=== PATIENT | female | born 1965 | race Caucasian/White ===

== ENCOUNTER 2016-10-24 12:54 | Emergency (ER) | payer BC ==
[2016-10-24] MEDS ORDERED: SODIUM CHLORIDE 0.9% 1,000 ML IV STA (13:23)
[2016-10-24] MEDS ORDERED: PANTOPRAZOLE 40 MG/10 ML VIAL IVP STA (13:23)
[2016-10-24] MEDS ORDERED: MAG HYDROX/AL HYDROX/SIMETH 30 ML, HYOSCYAMINE ELIXIR 10 ML, CIMETIDINE HCL 300 MG PO STA ×3 (13:25)
--- NOTE | 2016-10-24 13:31 | ED ---
General Adult HPI - General Source: patient, family, RN notes reviewed Mode of arrival: ambulatory Limitations: no limitations <Jonathan Sinclair - Last Filed: 10/24/16 15:44> <Ladi Turner - Last Filed: 10/24/16 17:09> - General Chief complaint: Abdominal Pain Stated complaint: Abd pain Time Seen by Provider: 10/24/16 13:04 - History of Present Illness Initial comments: Chief complaint history of present illness this is a 51-year-old female here with her significant other. She was sent here from the urgent care clinic. Patient's had 4 days of epigastric pain. Mildly relieved with antacid. No change in stool. No change in color of urine. She did say that the urgent care clinic told her she had blood in the urine. Patient denies nausea vomiting or diarrhea (Jonathan Sinclair) - Related Data Previous Rx's Medication Instructions Recorded Ondansetron Odt [Zofran ODT] 4 mg PO Q8HR PRN #20 tab 10/24/16 Allergies Allergy/AdvReac Type Severity Reaction Status Date / Time Penicillins Allergy Rash/Hives Verified 10/24/16 13:20 Review of Systems ROS Other: All systems not noted in ROS Statement are negative. <Jonathan Sinclair - Last Filed: 10/24/16 15:44> ROS Other: All systems not noted in ROS Statement are negative. <Ladi Turner - Last Filed: 10/24/16 17:09> ROS Statement: Those systems with pertinent positive or pertinent negative responses have been documented in the HPI. Patient denies any change in visual acuity no headache no chest pain no stiff neck. Epigastric discomfort without radiation. No nausea no vomiting mild change in appetite. No change in color of stool or urine. No complaint of any joint pain or muscular skeletal pain. All systems are reviewed Asked medical problems significant for hyperlipidemia, she denies any surgeries. The patient's family history significant for Crohn's but no cancers. She has ALLERGIES to penicillin which causes hives. Patient does smoke she was strongly encouraged to stop. Denies alcohol use (Jonathan Sinclair) Past Medical History Past Medical History: Hyperlipidemia History of Any Multi-Drug Resistant Organisms: None Reported Past Surgical History: No Surgical Hx Reported Past Psychological History: No Psychological Hx Reported Smoking Status: Current every day smoker Past Alcohol Use History: None Reported Past Drug Use History: None Reported <Jonathan Sinclair - Last Filed: 10/24/16 15:44> General Exam Limitations: no limitations <Jonathan Sinclair - Last Filed: 10/24/16 15:44> <Ladi Turner - Last Filed: 10/24/16 17:09> - General Exam Comments Initial Comments: General: The patient is awake and alert, complains of epigastric pain, ongoing for 4 days. Patient's vital signs show temperature 97.9 pulse 100 for rate 18 pulse ox 90% room air blood pressure 139/82 Eye: Pupils are equal, round and reactive to light, extra-ocular movements are intact ; there is normal conjunctiva bilaterally. No signs of icterus Ears, nose, mouth and throat: There are moist mucous membranes and no oral lesions. Neck: The neck is supple, there is no tenderness , no anterior cervical lymphadenopathy, no evidence of meningeal irritation. Cardiovascular: There is a regular rate and rhythm. No murmur, rub or gallop is appreciated. Respiratory: Lungs are clear to auscultation, respirations are non-labored, breath sounds are equal. No wheezes, stridor, rales, or rhonchi. Gastrointestinal: Soft, non-distended, and only tender with deep palpation to the epigastrium. Negative Boogie sign.. There is no rebound or guarding present. No CVA tenderness. Bowel sounds are unremarkable. Back: There is no tenderness to palpation in the midline. There is no obvious deformity. No rashes noted. Musculoskeletal: Normal ROM, no tenderness, There is no pedal edema. There is no calf tenderness or swelling. Sensation intact. Neurological: A complaint of a neuro problems no evidence of any focal or lateralizing findings Skin: Skin is warm and dry and no rashes or lesions are noted. (Jonathan Sinclair) Medical Decision Making - Lab Data Result diagrams: 10/24/16 14:10 10/24/16 14:10 <Jonathan Sinclair - Last Filed: 10/24/16 15:44> - Lab Data Result diagrams: 10/24/16 14:10 10/24/16 14:10 <Ladi Turner - Last Filed: 10/24/16 17:09> - Medical Decision Making Medical decision making; patient's white count is 10 hemoglobin 14 hematocrit of 41 with a potassium 4.3. BUN 11 creatinine 0.6 to GFR greater than 60 and a glucose of 86. Amylase 148 lipase 798. Patient denies alcohol use. X-ray of the abdomen was done AP view. Reviewed by radiologist his final impression is nonspecific nonobstructive bowel gas pattern. As read by Dr. Faust (Jonathan Sinclair) Ultrasound was performed no evidence of any acute pathology. Patient wants to go to a prescription for Zofran for discomfort. No greasy fatty foods. Follow-up with her family physician. She requested an unfortunate. (Ladi Turner) - Lab Data Lab Results 10/24/16 10/24/16 10/24/16 Range/Units 14:10 14:10 14:10 WBC 10.3 (3.8-10.6) k/uL RBC 4.53 (3.80-5.40) m/uL Hgb 14.3 (11.4-16.0) gm/dL Hct 41.6 (34.0-46.0) % MCV 92.0 (80.0-100.0) fL MCH 31.7 (25.0-35.0) pg MCHC 34.5 (31.0-37.0) g/dL RDW 13.1 (11.5-15.5) % Plt Count 298 (150-450) k/uL Neutrophils % 78 % Lymphocytes % 16 % Monocytes % 4 % Eosinophils % 1 % Basophils % 0 % Neutrophils # 8.0 H (1.3-7.7) k/uL Lymphocytes # 1.7 (1.0-4.8) k/uL Monocytes # 0.4 (0-1.0) k/uL Eosinophils # 0.1 (0-0.7) k/uL Basophils # 0.0 (0-0.2) k/uL Sodium 142 (137-145) mmol/L Potassium 4.3 (3.5-5.1) mmol/L Chloride 108 H (98-107) mmol/L Carbon Dioxide 22 (22-30) mmol/L Anion Gap 12 mmol/L BUN 11 (7-17) mg/dL Creatinine 0.60 (0.52-1.04) mg/dL Est GFR (MDRD) Af Amer >60 (>60 ml/min/1.73 sqM) Est GFR (MDRD) Non-Af >60 (>60 ml/min/1.73 sqM) Glucose 86 (74-99) mg/dL Plasma Lactic Acid Cr 0.8 (0.7-2.0) mmol/L Calcium 9.5 (8.4-10.2) mg/dL Total Bilirubin 0.4 (0.2-1.3) mg/dL AST 21 (14-36) U/L ALT 29 (9-52) U/L Alkaline Phosphatase 105 (38-126) U/L Total Protein 7.3 (6.3-8.2) g/dL Albumin 4.3 (3.5-5.0) g/dL Amylase 148 H (30-110) U/L Lipase 798 H (23-300) U/L Urine Color Urine Appearance (Clear) Urine pH (5.0-8.0) Ur Specific [place] (1.001-1.035) Urine Protein (Negative) Urine Glucose (UA) (Negative) Urine Ketones (Negative) Urine Blood (Negative) Urine Nitrite (Negative) Urine Bilirubin (Negative) Urine Urobilinogen (<2.0) mg/dL Ur Leukocyte Esterase (Negative) Urine RBC (0-5) /hpf Urine WBC (0-5) /hpf Ur Squamous Epith Cells (0-4) /hpf Amorphous Sediment (None) /hpf Urine Bacteria (None) /hpf Urine Mucus (None) /hpf 10/24/16 Range/Units 15:15 WBC (3.8-10.6) k/uL RBC (3.80-5.40) m/uL Hgb (11.4-16.0) gm/dL Hct (34.0-46.0) % MCV (80.0-100.0) fL MCH (25.0-35.0) pg MCHC (31.0-37.0) g/dL RDW (11.5-15.5) % Plt Count (150-450) k/uL Neutrophils % % Lymphocytes % % Monocytes % % Eosinophils % % Basophils % % Neutrophils # (1.3-7.7) k/uL Lymphocytes # (1.0-4.8) k/uL Monocytes # (0-1.0) k/uL Eosinophils # (0-0.7) k/uL Basophils # (0-0.2) k/uL Sodium (137-145) mmol/L Potassium (3.5-5.1) mmol/L Chloride (98-107) mmol/L Carbon Dioxide (22-30) mmol/L Anion Gap mmol/L BUN (7-17) mg/dL Creatinine (0.52-1.04) mg/dL Est GFR (MDRD) Af Amer (>60 ml/min/1.73 sqM) Est GFR (MDRD) Non-Af (>60 ml/min/1.73 sqM) Glucose (74-99) mg/dL Plasma Lactic Acid Cr (0.7-2.0) mmol/L Calcium (8.4-10.2) mg/dL Total Bilirubin (0.2-1.3) mg/dL AST (14-36) U/L ALT (9-52) U/L Alkaline Phosphatase (38-126) U/L Total Protein (6.3-8.2) g/dL Albumin (3.5-5.0) g/dL Amylase (30-110) U/L Lipase (23-300) U/L Urine Color Light Yellow Urine Appearance Clear (Clear) Urine pH 5.0 (5.0-8.0) Ur Specific [place] 1.005 (1.001-1.035) Urine Protein Negative (Negative) Urine Glucose (UA) Negative (Negative) Urine Ketones Trace H (Negative) Urine Blood Small H (Negative) Urine Nitrite Negative (Negative) Urine Bilirubin Negative (Negative) Urine Urobilinogen <2.0 (<2.0) mg/dL Ur Leukocyte Esterase Negative (Negative) Urine RBC 3 (0-5) /hpf Urine WBC 3 (0-5) /hpf Ur Squamous Epith Cells 3 (0-4) /hpf Amorphous Sediment Rare H (None) /hpf Urine Bacteria Occasional H (None) /hpf Urine Mucus Rare H (None) /hpf Disposition <Jonathan Sinclair - Last Filed: 10/24/16 15:44> Time of Disposition: 17:09 <Ladi Turner - Last Filed: 10/24/16 17:09> Clinical Impression: Acute pancreatitis Disposition: HOME SELF-CARE Condition: Fair Instructions: Pancreatitis (ED) Prescriptions: Ondansetron Odt [Zofran ODT] 4 mg PO Q8HR PRN #20 tab PRN Reason: Nausea Referrals: Josh Mann MD [Primary Care Provider] - 1-2 days
--- NOTE | 2016-10-24 14:26 | XR ---
EXAMINATION TYPE: XR abdomen 2V DATE OF EXAM: 10/24/2016 HISTORY: Pain. Technique: 2 views of the abdomen are submitted. Comparison: None. Findings: There is no convincing evidence of pneumoperitoneum. The Bowel gas pattern is nonspecific and nonobstructive. No sizable air-fluid levels are seen. No mass effects are noted. No renal calcifications are identified. IMPRESSION: 1. Nonspecific nonobstructive bowel gas pattern
[2016-10-24 14:36] LABS: Basophils % (A) 0 %; CH 31.5; CHCM 34.4; Eosinophils # (A) 0.1 k/uL (0-0.7); Eosinophils % (A) 1 %; HCT 41.6 % (34.0-46.0); HDW 2.22; HGB 14.3 gm/dL (11.4-16.0); Luc % (Auto) 1; Lymphocytes # (A) 1.7 k/uL (1.0-4.8); Lymphocytes % (A) 16 %; MCH 31.7 pg (25.0-35.0); MCHC 34.5 g/dL (31.0-37.0); Mean Platelet Volume 7.6; Monocytes # (A) 0.4 k/uL (0-1.0); Monocytes % (A) 4 %; Neutrophils % (A) 78 %; RBC 4.53 m/uL (3.80-5.40); RDW 13.1 % (11.5-15.5); WBC 10.3 k/uL (3.8-10.6)
[2016-10-24 14:47] LABS: ALT 29 U/L (9-52); AST 21 U/L (14-36); Alkaline Phosphatase 105 U/L (38-126); Amylase 148 U/L (30-110); Anion Gap 12 mmol/L; Blood Urea Nitrogen 11 mg/dL (7-17); Calcium 9.5 mg/dL (8.4-10.2); Carbon Dioxide 22 mmol/L (22-30); Chloride 108 mmol/L (98-107); Glucose 86 mg/dL (74-99); Non-African American GFR(MDRD) >60 (>60 ml/min/1.73 sqM); Potassium 4.3 mmol/L (3.5-5.1); Sodium 142 mmol/L (137-145); Total Bilirubin 0.4 mg/dL (0.2-1.3); Total Protein 7.3 g/dL (6.3-8.2)
[2016-10-24] MEDS ORDERED: HYDROmorphone 1 MG/ML 1 ML SYRINGE IVP STA (15:31)
[2016-10-24 15:39] LABS: Amorphous Sediment,Urine Rare /hpf; Appearance,Urine Clear (Clear); Bacteria,Urine Occasional /hpf; Bilirubin,Urine Negative (Negative); Glucose,Urine (UA) Negative (Negative); Ketones,Urine Trace (Negative); Leukocyte Esterase,Urine Negative (Negative); Mucus,Urine Rare /hpf; Nitrite,Urine Negative (Negative); Particle Count 2361; Protein,Urine Negative (Negative); RBC,Urine 3 /hpf (0-5); Specific Gravity,Urine 1.005 (1.001-1.035); Squamous Epithelial Cell,Urine 3 /hpf (0-4); UA Billing (MACRO vs. MICRO) MICRO; Urobilinogen,Urine <2.0 mg/dL (<2.0); WBC,Urine 3 /hpf (0-5)
--- NOTE | 2016-10-24 16:03 | US ---
EXAMINATION TYPE: US abdomen limited DATE OF EXAM: 10/24/2016 COMPARISON: NONE CLINICAL HISTORY: epigastric pain, pancreatitis. EXAM MEASUREMENTS: Liver Length: 15.8 cm Gallbladder Wall: 0.2 cm CBD: 0.5 cm Right Kidney: 9.6 x 4.1 x 5.6 cm Pancreas: prominent Duct of [place] Liver: homogeneous Gallbladder: No stones seen Evidence for sonographic Boogie's sign: no CBD: wnl Right Kidney: No hydronephrosis or masses seen Limited views of the pancreas are unremarkable. The liver is normal in size without biliary dilatation. The gallbladder is normal. The gallbladder wall measures 2 mm. The distal common hepatic measures 5 m m. There is no sonographic Boogie's sign. The right kidney is normal. IMPRESSION: NORMAL RIGHT UPPER QUADRANT ULTRASOUND.
[2016-10-24 16:11] VITALS: BP 143/74; PULSE 83; RESP 15; TEMP 98.3
== END 2016-10-24 17:10 | disposition home or self-care (01) ==
LOC: EC 12:54
DX: K85.90 Acute pancreatitis without necrosis or infection, unspecified (principal); F17.200 Nicotine dependence, unspecified, uncomplicated; Z88.0 Allergy status to penicillin; Z53.20 Procedure and treatment not carried out because of patient's decision for unspecified reasons
CPT/HCPCS: 36415; 80053; 82150; 83605; 83690; 85025; 81001; 87086; 74020; 76705; 99284; 96374; 96361 ×3; C9113

== ENCOUNTER 2016-10-28 13:56 | Emergency (ER) | payer BC ==
[2016-10-28] MEDS ORDERED: RX INFO: IV CONTRAST WAS GIVEN 1 EACH MISC MISCELLANE PRN (14:24)
[2016-10-28] MEDS ORDERED: SODIUM CHLORIDE 0.9% 1,000 ML IV STA ×2 (14:29)
[2016-10-28 14:53] LABS: Basophils % (A) 0 %; CH 31.8; CHCM 35.1; Eosinophils # (A) 0.1 k/uL (0-0.7); Eosinophils % (A) 1 %; HCT 41.4 % (34.0-46.0); HDW 2.33; HGB 14.5 gm/dL (11.4-16.0); Luc # (Auto) 0.09; Luc % (Auto) 1; Lymphocytes # (A) 1.9 k/uL (1.0-4.8); Lymphocytes % (A) 23 %; MCH 31.9 pg (25.0-35.0); MCHC 35.1 g/dL (31.0-37.0); MCV 90.9 fL (80.0-100.0); Mean Platelet Volume 7.4; Monocytes # (A) 0.3 k/uL (0-1.0); Monocytes % (A) 3 %; Neutrophils # (A) 5.7 k/uL (1.3-7.7); Neutrophils % (A) 71 %; RBC 4.55 m/uL (3.80-5.40); RDW 12.9 % (11.5-15.5); WBC 8.1 k/uL (3.8-10.6); WBC (Perox) 7.59
[2016-10-28 14:57] LABS: Appearance,Urine Clear (Clear); Bacteria,Urine Rare /hpf; Bilirubin,Urine Negative (Negative); Glucose,Urine (UA) Negative (Negative); Ketones,Urine Negative (Negative); Leukocyte Esterase,Urine Negative (Negative); Nitrite,Urine Negative (Negative); PH, Urine 5.5 (5.0-8.0); Particle Count 1228; Protein,Urine Negative (Negative); RBC,Urine <1 /hpf (0-5); Specific Gravity,Urine 1.001 (1.001-1.035); Squamous Epithelial Cell,Urine 1 /hpf (0-4); UA Billing (MACRO vs. MICRO) MICRO; Urobilinogen,Urine <2.0 mg/dL (<2.0); WBC,Urine <1 /hpf (0-5)
[2016-10-28 15:01] LABS: ALT 25 U/L (9-52); AST 25 U/L (14-36); Alkaline Phosphatase 98 U/L (38-126); Amylase 60 U/L (30-110); Anion Gap 14 mmol/L; Blood Urea Nitrogen 8 mg/dL (7-17); Calcium 9.5 mg/dL (8.4-10.2); Carbon Dioxide 24 mmol/L (22-30); Chloride 101 mmol/L (98-107); Glucose 101 mg/dL (74-99); Non-African American GFR(MDRD) >60 (>60 ml/min/1.73 sqM); Potassium 3.7 mmol/L (3.5-5.1); Sodium 139 mmol/L (137-145); Total Bilirubin 0.5 mg/dL (0.2-1.3)
--- NOTE | 2016-10-28 15:38 | CT ---
EXAMINATION TYPE: CT abdomen pelvis w con DATE OF EXAM: 10/28/2016 COMPARISON: NONE HISTORY: Back pain CT DLP: 490.5 mGycm CONTRAST: CT scan of the abdomen and pelvis is performed without Oral Contrast and with IV Contrast, patient in jected with 100 mL of Omnipaque 300. FINDINGS: LUNG BASES-: No visible nodule. No infiltrate. Emphysematous changes at the lung bases. LIVER/GB: No calcified gallstones. No space occupying hepatic lesion. Biliary tree is of normal ca liber. PANCREAS: No inflammation. No distinct mass. SPLEEN: No splenic enlargement. No lesion seen. ADRENALS: No nodule. No thickening. KIDNEYS/BLADDER: No hydronephrosis. No nephrolithiasis. Tiny subcentimeter renal cortical cyst mid pole left kidney. Urinary bladder grossly unremarkable. BOWEL: Normal appendix. Normal bowel caliber. No inflammation. GENITAL ORGANS: No gross abnormality. LYMPH NODES: No greater than 1cm abdominal or pelvic lymph nodes are appreciated. AORTA: No significant abnormality. OSSEOUS STRUCTURES: No significant abnormality is seen. OTHER: No significant additional abnormality is seen. IMPRESSION: 1. No significant abnormality to account for the patient's symptoms.
--- NOTE | 2016-10-28 15:59 | ED ---
General Adult HPI - General Chief complaint: Abdominal Pain Stated complaint: back pain-revisit Time Seen by Provider: 10/28/16 14:09 Source: patient Mode of arrival: ambulatory Limitations: no limitations - History of Present Illness Initial comments: 51-year-old female presenting with chief complaint of back pain. Patient was evaluated in the emergency department 3 days ago and was found to have an elevated serum lipase was diagnosed with pancreatitis. At that time the patient had midepigastric pain. She currently states that her epigastric pain is resolved. It has progressed back pain. She denies any trauma. She denies fever or chills. She denies nausea vomiting. Patient was encouraged to eat a bland diet and return with worsening symptoms. She denies any diarrhea. States her last bowel was yesterday and was loose but otherwise normal. She does report eating less over the last several days which was encouraged at the time of discharge. Patient is concerned because the pain is traveled and she is unsure of the cause of her pancreatitis. Denies alcohol. Only past medical history is hyperlipidemia. She is not currently on any medication. No recent travel. - Related Data Home Medications Medication Instructions Recorded Confirmed Acetaminophen Tab [Tylenol Tab] 1,000 mg PO Q6HR PRN 10/28/16 10/28/16 Allergies Allergy/AdvReac Type Severity Reaction Status Date / Time Penicillins Allergy Rash/Hives Verified 10/28/16 14:41 Review of Systems ROS Statement: Those systems with pertinent positive or pertinent negative responses have been documented in the HPI. ROS Other: All systems not noted in ROS Statement are negative. Cardiovascular: Denies: chest pain Gastrointestinal: Denies: abdominal pain (Nontraumatic mid back.) Genitourinary: Denies: dysuria Musculoskeletal: Reports: back pain Past Medical History Past Medical History: Hyperlipidemia History of Any Multi-Drug Resistant Organisms: None Reported Past Surgical History: No Surgical Hx Reported Past Psychological History: No Psychological Hx Reported Smoking Status: Current every day smoker Past Alcohol Use History: None Reported Past Drug Use History: None Reported General Exam Limitations: no limitations General appearance: alert, in no apparent distress Head exam: Present: atraumatic, normocephalic Eye exam: Present: normal appearance, PERRL ENT exam: Present: normal exam, normal oropharynx, mucous membranes moist Respiratory exam: Present: normal lung sounds bilaterally. Absent: respiratory distress Cardiovascular Exam: Present: regular rate, normal rhythm GI/Abdominal exam: Present: soft, tenderness. Absent: guarding, rebound (Very mild tenderness to palpation in the midepigastrium) Extremities exam: Present: normal inspection, normal capillary refill. Absent: pedal edema Back exam: Present: normal inspection, full ROM. Absent: CVA tenderness (L) Neurological exam: Present: alert, oriented X3 Psychiatric exam: Present: normal affect, normal mood Skin exam: Present: warm, dry Course Vital Signs 10/28/16 10/28/16 13:58 16:23 Temperature 98.1 F 98 F Pulse Rate 98 96 Respiratory 20 18 Rate Blood Pressure 178/100 138/76 O2 Sat by Pulse 99 96 Oximetry - Reevaluation(s) Reevaluation #1: 10/28/16 17:02 On reevaluation at 1500 patient's pain is unchanged. She does not want any pain medication at this time. She has no nausea and no vomiting. She was updated on her laboratory studies. Medical Decision Making - Medical Decision Making 51 female presenting for evaluation of nontraumatic mid back pain. Patient was diagnosed with pancreatitis 3 days prior. At the [facility] ultrasound which showed no acute abnormality. She was discharged home at that time. Her serum lipase was 800. Patient denies nausea or vomiting. She is well-appearing. She does have some mild midepigastric tenderness to palpation. Laboratory studies reveal a normalized from lipase, labs reviewed and are unremarkable. CT of the abdomen with IV contrast is negative for any acute findings. No inflammation of the pancreas. Patient will continue a slow and bland diet. She is instructed to return to the emergency department. She'll follow-up with her primary care physician. Patient and her are agreeable with this plan. - Lab Data Result diagrams: 10/28/16 14:39 10/28/16 14:39 Lab Results 10/28/16 10/28/16 10/28/16 Range/Units 14:39 14:39 14:39 WBC 8.1 (3.8-10.6) k/uL RBC 4.55 (3.80-5.40) m/uL Hgb 14.5 (11.4-16.0) gm/dL Hct 41.4 (34.0-46.0) % MCV 90.9 (80.0-100.0) fL MCH 31.9 (25.0-35.0) pg MCHC 35.1 (31.0-37.0) g/dL RDW 12.9 (11.5-15.5) % Plt Count 365 (150-450) k/uL Neutrophils % 71 % Lymphocytes % 23 % Monocytes % 3 % Eosinophils % 1 % Basophils % 0 % Neutrophils # 5.7 (1.3-7.7) k/uL Lymphocytes # 1.9 (1.0-4.8) k/uL Monocytes # 0.3 (0-1.0) k/uL Eosinophils # 0.1 (0-0.7) k/uL Basophils # 0.0 (0-0.2) k/uL Sodium 139 (137-145) mmol/L Potassium 3.7 (3.5-5.1) mmol/L Chloride 101 (98-107) mmol/L Carbon Dioxide 24 (22-30) mmol/L Anion Gap 14 mmol/L BUN 8 (7-17) mg/dL Creatinine 0.60 (0.52-1.04) mg/dL Est GFR (MDRD) Af Amer >60 (>60 ml/min/1.73 sqM) Est GFR (MDRD) Non-Af >60 (>60 ml/min/1.73 sqM) Glucose 101 H (74-99) mg/dL Calcium 9.5 (8.4-10.2) mg/dL Total Bilirubin 0.5 (0.2-1.3) mg/dL AST 25 (14-36) U/L ALT 25 (9-52) U/L Alkaline Phosphatase 98 (38-126) U/L Total Protein 8.0 (6.3-8.2) g/dL Albumin 4.6 (3.5-5.0) g/dL Amylase 60 (30-110) U/L Lipase 139 (23-300) U/L Urine Color Colorless Urine Appearance Clear (Clear) Urine pH 5.5 (5.0-8.0) Ur Specific [place] 1.001 (1.001-1.035) Urine Protein Negative (Negative) Urine Glucose (UA) Negative (Negative) Urine Ketones Negative (Negative) Urine Blood Small H (Negative) Urine Nitrite Negative (Negative) Urine Bilirubin Negative (Negative) Urine Urobilinogen <2.0 (<2.0) mg/dL Ur Leukocyte Esterase Negative (Negative) Urine RBC <1 (0-5) /hpf Urine WBC <1 (0-5) /hpf Ur Squamous Epith Cells 1 (0-4) /hpf Urine Bacteria Rare H (None) /hpf Disposition Clinical Impression: Pancreatitis Disposition: HOME SELF-CARE Condition: Good Instructions: Pancreatitis (ED) Referrals: Josh Mann MD [Primary Care Provider] - 1-2 days
[2016-10-28 16:23] VITALS: BP 138/76; PULSE 96; RESP 18; TEMP 98
== END 2016-10-28 16:23 | disposition home or self-care (01) ==
LOC: EC 13:56
DX: K85.90 Acute pancreatitis without necrosis or infection, unspecified (principal); Z88.0 Allergy status to penicillin; F17.200 Nicotine dependence, unspecified, uncomplicated
CPT/HCPCS: 36415; 80053; 82150; 83690; 85025; 81001; 74177; 99284; 96360; 96361; Q9967

== ENCOUNTER → 2016-11-13 | Outpatient (CLI) | payer BC ==
--- NOTE | 2016-11-13 15:04 | NM ---
EXAMINATION TYPE: NM hepatobiliary w EF DATE OF EXAM: 11/13/2016 COMPARISON: NONE HISTORY: Epigastric pain TECHNIQUE: After the intravenous administration of 5.5 mCi Tc 99m Mebrofenin hepatobiliary scintigrap hy is performed. Immediate images post injection. FINDINGS: There is satisfactory initial accumulation of tracer by the liver. The gallbladder is visualized wit hin 50 to minutes. The small bowel activity is noted within 12 minutes. At one hour 8 ounces of ora l ensure plus is given to mimic CCK and gallbladder ejection fraction is calculated at 78 %, in the n ormal range. Therefore there is no scintigraphic evidence of cystic or common bile duct obstruction to suggest acute cholecystitis or gallbladder dyskinesia. IMPRESSION: NORMAL NUCLEAR MEDICINE HEPATOBILIARY SCAN WITH EJECTION FRACTION CALCULATION.
== END | disposition home or self-care (01) ==
LOC: RADNMMAIN 12:51
PROVIDERS: ATTEND Family Medicine
DX: R10.13 Epigastric pain (principal)
CPT/HCPCS: 78226; A9537

== ENCOUNTER → 2018-10-23 | Outpatient (CLI) | payer OTHER ==
[2018-10-23 12:00] LABS: Basophils % (A) 1 %; Eosinophils # (A) 0.1 k/uL (0-0.7); Eosinophils % (A) 1 %; HGB 13.7 gm/dL (11.4-16.0); Lymphocytes # (A) 1.7 k/uL (1.0-4.8); Lymphocytes % (A) 27 %; MCH 30.2 pg (25.0-35.0); MCV 94.6 fL (80.0-100.0); Mean Platelet Volume 7.4; Monocytes # (A) 0.2 k/uL (0-1.0); Monocytes % (A) 4 %; Neutrophils % (A) 66 %; Platelet Count 273 k/uL (150-450); RBC 4.55 m/uL (3.80-5.40); RDW 13.3 % (11.5-15.5); WBC 6.1 k/uL (3.8-10.6)
[2018-10-23 16:34] LABS: African American GFR (CKD) 115.5 (60.0-200.0); BUN/Creat Ratio 15.71 Ratio (12.00-20.00); Potassium 4.3 mmol/L (3.5-5.5)
[2018-10-23 16:44] LABS: Progesterone <0.2 ng/mL
== END | disposition home or self-care (01) ==
LOC: LABWHC1 10:43
PROVIDERS: ATTEND Family Medicine
DX: R63.5 Abnormal weight gain (principal); R00.2 Palpitations
CPT/HCPCS: 36415; 80048; 82670; 82672; 83001; 83002; 84144; 84443; 85025

== ENCOUNTER → 2018-11-04 | Outpatient (CLI) | payer OTHER ==
--- NOTE | 2018-11-04 08:48 | CT ---
EXAMINATION TYPE: CT brain wo con DATE OF EXAM: 11/04/2018 COMPARISON: Headache HISTORY: NICOLE CT DLP: 945.5 mGycm Automated exposure control for dose reduction was used. FINDINGS: Area of low density within the right basal ganglia may been the basis of intraparenchymal cyst versus remote lacunar infarct. Ventricular systems consistent with the patient's age. No midline shift or mass effect. No acute hemo rrhage. Calvarium intact. Cerebellar tonsils are low-lying in position. IMPRESSION: LOW DENSITY WITHIN THE RIGHT BASAL GANGLIA MOST TYPICAL OF REMOTE LACUNAR INFARCT.. CEREBELLAR TONSIL S LOW-LYING IN POSITION CORRELATE WITH MRI TO ASSESS FOR CHIARI MALFORMATION.
--- NOTE | 2018-11-04 10:54 | P.STRESS ---
- Stress Test Note Stress Test Results/Findings: Exam Performed: stress echo exercise with con Exam Date: 11/04/18 Reason for Exam: CHEST PAIN, PALPITATIONS Height: 5 ft Weight: 70.307 kg Protocol: STRESS ECHO Stage: II Duration of Exercise: 6:00 Resting Heart Rate: 85 Resting Blood Pressure: 138/62 Maximum Achieved Heart Rate: 150 Maximum Achieved Blood Pressure: 217/97 85% PMHR: 143 100% PMHR: 168 METS: 7.1 Technologist Comment: Stress Test Results/Findings: This is a 53-year-old female with history of hypercholesteremia, smoking h istory, being evaluated for symptoms of chest pain and palpitations. Stress data: Baseline EKG showed sinus rhythm with a MS interval and QRS duration. Blood pressure at rest is unknown 38/62 with pulse rate of 85. Patient walked on the Tung protocol for 6 minutes achieving a maximum heart rate of 150 with a blood pressure of 208/63. EKGs taken during and after x-ray did not reveal any significant changes to suggest ischemia. Patient did not experience any chest pain. Echo data: Echo study was done with contrast. Baseline echo images showed normal wall motion and thickening. Exercise echo images showed augmentation of wall motion and thickening in all segments. Final impression: #1. Negative stress test #2. Negative stress echo.
--- NOTE | 2018-11-04 12:53 | ECHOS ---
Exam Performed: stress echo exercise with con Exam Date: 11/04/18 Reason for Exam: CHEST PAIN, PALPITATIONS Height: 5 ft Weight: 70.307 kg Protocol: STRESS ECHO Stage: II Duration of Exercise: 6:00 Resting Heart Rate: 85 Resting Blood Pressure: 138/62 Maximum Achieved Heart Rate: 150 Maximum Achieved Blood Pressure: 217/97 85% PMHR: 143 100% PMHR: 168 METS: 7.1 Technologist Comment: Stress Test Results/Findings: This is a 53-year-old female with history of hypercholesteremia, smoking history, being evaluated for symptoms of chest pain and palpitations. Stress data: Baseline EKG showed sinus rhythm with a [place] interval and QRS duration. Blood pressure at rest is unknown 38/62 with pulse rate of 85. Patient walked on the Tung protocol for 6 minutes achieving a maximum heart rate of 150 with a blood pressure of 208/63. EKGs taken during and after x-ray did not reveal any significant changes to suggest ischemia. Patient did not experience any chest pain. Echo data: Echo study was done with contrast. Baseline echo images showed normal wall motion and thickening. Exercise echo images showed augmentation of wall motion and thickening in all segments. Final impression: #1. Negative stress test #2. Negative stress ech MTDD
== END | disposition home or self-care (01) ==
LOC: RADCTMAIN 07:40
PROVIDERS: ATTEND Family Medicine
DX: I63.9 Cerebral infarction, unspecified (principal); G93.5 Compression of brain; Z88.0 Allergy status to penicillin
CPT/HCPCS: 93351; 70450; Q9950

== ENCOUNTER → 2018-11-14 | Outpatient (CLI) | payer OTHER ==
--- NOTE | 2018-11-14 09:02 | MR ---
EXAMINATION TYPE: MR brain wo/w con DATE OF EXAM: 11/14/2018 COMPARISON: CT brain 10 days ago. HISTORY: Arnold Chiari syndrome, recent abnormal CT for headaches. TECHNIQUE: Multiplanar, multisequence images of the brain and brainstem is performed without and with IV contras t, utilizing 7 mL intravenous Gadavist . FINDINGS: Diffusion weighted images demonstrate no evidence of a recent infarct or other diffusion ab normality. There is no worrisome extra-axial fluid collection. The ventricular system and cisternal spaces are normal in size and appearance. The brain volume is age appropriate. Scattered foci of T2 intensity is seen throughout the superficial, deep, and periventricular white matter. Approximately 30-40 scattered small lesions are present. Midline structures demonstrate normal morphology. Cerebellar tonsils are perhaps slightly low lying b ut not greater than 5 mm inferior descended into foramen magnum. Post contrast images demonstrate no abnormal enhancement. The dural venous sinuses appear patent. The visualized sinuses are clear and t he globes are intact. IMPRESSION: Mild to moderate nonspecific white matter changes may be on basis of altered vascular mec hanics related to product of migraine headaches. Low-lying cerebellar tonsils, no Chiari type I malfo rmation.
== END | disposition home or self-care (01) ==
LOC: RADMRIMAIN 07:31
PROVIDERS: ATTEND Family Medicine
DX: R90.89 Other abnormal findings on diagnostic imaging of central nervous system (principal); Q07.00 Arnold-Chiari syndrome without spina bifida or hydrocephalus
CPT/HCPCS: 70553; A9585

== ENCOUNTER → 2021-03-13 | Outpatient (CLI) | payer BC ==
--- NOTE | 2021-03-15 10:00 | MM ---
Reason for exam: screening (asymptomatic). Last mammogram was performed 10 years and 4 months ago. Physical Findings: A clinical breast exam by your physician is recommended on an annual basis and results should be correlated with mammographic findings. MG 3D Screening Mammo W/Cad Bilateral CC and MLO view(s) were taken. Prior study comparison: November 20, 2010, bilateral digital screening mammo w/CAD. There are scattered fibroglandular densities. Benign appearing bilateral calcifications. No significant changes when compared with prior studies. ASSESSMENT: Benign, BI-RAD 2 RECOMMENDATION: Routine screening mammogram of both breasts in 1 year.
== END | disposition home or self-care (01) ==
LOC: RADMAMWWP 09:09
PROVIDERS: ATTEND Family Medicine
DX: Z12.31 Encounter for screening mammogram for malignant neoplasm of breast (principal)
CPT/HCPCS: 77063; 77067

== ENCOUNTER → 2021-03-27 | Outpatient (CLI) | payer BC ==
--- NOTE | 2021-03-27 10:39 | CTL ---
EXAMINATION TYPE: CT Low Dose Lung DATE OF EXAM ORDERED: 03/27/2021 HISTORY: . Lung cancer screening CT DLP: 93.[address] CTDI: 2.8 mGy Automated exposure control for dose reduction was used. SCREENING VISIT: COMPARISON: None TECHNIQUE: Low dose computed tomography scan was performed through the chest at 1 mm thick sections a nd reconstructed images in multiple planes at 1 mm and [address] DIAGNOSTIC QUALITY: Satisfactory FINDINGS: Biapical pleural thickening. There is subsequent 5 mm nodules subpleural location bilateral upper lob es. Emphysematous changes are noted. There is no pleural effusion or pneumothorax. No consolidative p neumonia. Hypertrophic and degenerative change of the spine. Heart size normal. Aorta of normal caliber. Athero sclerotic change aorta and coronary arteries. Structures of the upper abdomen demonstrate no definite abnormality. IMPRESSION: 1. Diffuse emphysema 2. Multiple subpleural less than 5 mm nodules most likely benign. CT LUNG RAD AND CT CHEST RECOMMENDATION: Lung-Rad 2 Benign Appearance or Behavior: Continue annual sc reening with LDCT in 12 months.
== END | disposition home or self-care (01) ==
LOC: RADCTMAIN 09:20
PROVIDERS: ATTEND Family Medicine
DX: Z12.2 Encounter for screening for malignant neoplasm of respiratory organs (principal); R91.8 Other nonspecific abnormal finding of lung field; J43.9 Emphysema, unspecified
CPT/HCPCS: 71271

== ENCOUNTER 2021-10-07 21:14 | Emergency (ER) | payer BC ==
[2021-10-07 22:25] VITALS: TEMP 98
[2021-10-07 22:56] LABS: Appearance,Urine Clear (Clear); Bilirubin,Urine Negative (Negative); Blood,Urine Trace (Negative); Color,Urine Colorless; Glucose,Urine (UA) Negative (Negative); Ketones,Urine Negative (Negative); Leukocyte Esterase,Urine Negative (Negative); Nitrite,Urine Negative (Negative); Protein,Urine Negative (Negative); RBC,Urine <1 /hpf (0-5); Specific Gravity,Urine 1.002 (1.001-1.035); Squamous Epithelial Cell,Urine <1 /hpf (0-4); Urobilinogen,Urine <2.0 mg/dL (<2.0); WBC,Urine <1 /hpf (0-5)
[2021-10-07] MEDS ORDERED: KETOROLAC 15 MG/ML 1 ML VIAL IVP STA (23:50)
--- NOTE | 2021-10-07 23:54 | ED ---
General Adult HPI - General Chief complaint: Urogenital Stated complaint: Abd/side pain Time Seen by Provider: 10/07/21 23:39 Source: patient, RN notes reviewed Mode of arrival: ambulatory - History of Present Illness Initial comments: This is a pleasant 56-year-old female who states that she was lifting an object back in June, when she injured her back. Patient subsequently was seen her primary care physician's office and had a urine done which showed blood. Pat ient was given a course of antibiotics and did not get better. Patient had a subsequent urinalysis done which was contaminated but did show Streptococcus. Patient then started developing abdominal pain which is Ausman going on since mid June.The case was discussed in detail with ED attending physician. Presentation, findings, treatment plan discussed in detail. States the pain seems to be getting worse. Patient also concerned she might be running a low- grade fever. No nausea or vomiting. No diarrhea or constipation. Patient has had no gross hematuria. No vaginal discharge. Patient states she hasn't ultrasound ordered by her primary care physician. No headache, no fever or chills, no changes in vision or hearing, no sore throat or difficulty with speech, no neck pain, no chest pain or shortness of breath,no changes in urination or bowel movements, no numbness or tingling, no extremity pain, no skin rashes or lesions. - Related Data Home Medications Medication Instructions Recorded Confirmed Acetaminophen Tab [Tylenol Tab] 1,000 mg PO Q6HR PRN 10/28/16 10/28/16 Allergies Allergy/AdvReac Type Severity Reaction Status Date / Time Penicillins Allergy Rash/Hives Verified 10/07/21 22:25 Review of Systems ROS Statement: Those systems with pertinent positive or pertinent negative responses have been documented in the HPI. ROS Other: All systems not noted in ROS Statement are negative. Past Medical History Past Medical History: Hyperlipidemia History of Any Multi-Drug Resistant Organisms: None Reported Past Surgical History: No Surgical Hx Reported Past Psychological History: No Psychological Hx Reported Smoking Status: Never smoker Past Alcohol Use History: None Reported Past Drug Use History: None Reported General Exam General appearance: alert, in no apparent distress Head exam: Present: atraumatic, normocephalic, normal inspection Eye exam: Present: normal appearance, PERRL, EOMI. Absent: scleral icterus, conjunctival injection, periorbital swelling ENT exam: Present: normal exam, mucous membranes moist Neck exam: Present: normal inspection. Absent: tenderness, meningismus, lymphadenopathy Respiratory exam: Present: normal lung sounds bilaterally. Absent: respiratory distress, wheezes, rales, rhonchi, stridor Cardiovascular Exam: Present: regular rate, normal rhythm, normal heart sounds. Absent: systolic murmur, diastolic murmur, rubs, gallop, clicks GI/Abdominal exam: Present: soft, tenderness (Patient has mild generalized tenderness), normal bowel sounds. Absent: distended, guarding, rebound, rigid Extremities exam: Present: normal inspection, full ROM, normal capillary refill. Absent: tenderness, pedal edema, joint swelling, calf tenderness Back exam: Present: normal inspection Neurological exam: Present: alert, oriented X3, CN II-XII intact Psychiatric exam: Present: normal affect, normal mood Skin exam: Present: warm, dry, intact, normal color. Absent: rash Course Vital Signs 10/07/21 22:19 Temperature 98 F Pulse Rate 99 Respiratory 19 Rate Blood Pressure 124/79 O2 Sat by Pulse 98 Oximetry - Reevaluation(s) Reevaluation #1: 10/08/21 02:00 Medical record is reviewed Symptoms are improved here in the emergency department Patient is informed of results and questions answered Patient in no distress Reevaluation #2: 10/08/21 02:19 Medical record is reviewed Patient hemodynamically stable Patient is informed of results and questions answered Patient in no distress Medical Decision Making - Medical Decision Making -There are no red flags for concerning back pathology. Specifically: -No history of cancer, this is not a mass effect, MRI not indicated. -No anticoagulation, this is not a bleed. -No fevers, no IVDU, this is not an infectious process. -With a normal neuro exam, and no urinary or bowel retention or incontinence, there is no clinical sign of motor defect or cauda equina - MRI is not indicated at this point. -No pulsating abdominal mass or risk factors for AAA. -Pain is relieved with rest, which is also less concerning. -I do not believe that x-rays or emergent MRI is indicated at this time. -We will treat symptomatically and discharge home with follow up instructions. -Stretching/strengthening exercise given to patient and they will be referred to physical therapy -Patient is instructed to use [id number] analgesics as directed on packaging for pain. I discussed CT findings with the radiologist, Dr. Jacobson who believes the abnormality L-2 is a Schmorl's node. However I'm going to have the patient get a MRI of her lumbar spine. Prescription given. - Lab Data Result diagrams: 10/08/21 00:14 10/08/21 00:14 Lab Results 10/07/21 10/08/21 10/08/21 Range/Units 22:38 00:14 00:14 WBC 7.1 (3.8-10.6) k/uL RBC 4.07 (3.80-5.40) m/uL Hgb 12.2 (11.4-16.0) gm/dL Hct 38.5 (34.0-46.0) % MCV 94.6 (80.0-100.0) fL MCH 30.0 (25.0-35.0) pg MCHC 31.7 (31.0-37.0) g/dL RDW 13.2 (11.5-15.5) % Plt Count 339 (150-450) k/uL MPV 7.5 Neutrophils % 57 % Lymphocytes % 35 % Monocytes % 5 % Eosinophils % 1 % Basophils % 1 % Neutrophils # 4.1 (1.3-7.7) k/uL Lymphocytes # 2.5 (1.0-4.8) k/uL Monocytes # 0.3 (0-1.0) k/uL Eosinophils # 0.1 (0-0.7) k/uL Basophils # 0.1 (0-0.2) k/uL ESR 48 H (0-20) mm/hr Sodium 138 (137-145) mmol/L Potassium 3.5 (3.5-5.1) mmol/L Chloride 108 H (98-107) mmol/L Carbon Dioxide 22 (22-30) mmol/L Anion Gap 8 mmol/L BUN 10 (7-17) mg/dL Creatinine 0.58 (0.52-1.04) mg/dL Est GFR (CKD-EPI)AfAm >90 (>60 ml/min/1.73 sqM) Est GFR (CKD-EPI)NonAf >90 (>60 ml/min/1.73 sqM) Glucose 97 (74-99) mg/dL Plasma Lactic Acid Cr (0.7-2.0) mmol/L Calcium 9.1 (8.4-10.2) mg/dL Total Bilirubin 0.3 (0.2-1.3) mg/dL AST 21 (14-36) U/L ALT 16 (4-34) U/L Alkaline Phosphatase 107 (38-126) U/L C-Reactive Protein 0.6 (<1.0) mg/dL Total Protein 6.9 (6.3-8.2) g/dL Albumin 4.2 (3.5-5.0) g/dL Lipase 46 (23-300) U/L Urine Color Colorless Urine Appearance Clear (Clear) Urine pH 6.0 (5.0-8.0) Ur Specific Drummond 1.002 (1.001-1.035) Urine Protein Negative (Negative) Urine Glucose (UA) Negative (Negative) Urine Ketones Negative (Negative) Urine Blood Trace H (Negative) Urine Nitrite Negative (Negative) Urine Bilirubin Negative (Negative) Urine Urobilinogen <2.0 (<2.0) mg/dL Ur Leukocyte Esterase Negative (Negative) Urine RBC <1 (0-5) /hpf Urine WBC <1 (0-5) /hpf Ur Squamous Epith Cells <1 (0-4) /hpf 10/08/21 Range/Units 00:14 WBC (3.8-10.6) k/uL RBC (3.80-5.40) m/uL Hgb (11.4-16.0) gm/dL Hct (34.0-46.0) % MCV (80.0-100.0) fL MCH (25.0-35.0) pg MCHC (31.0-37.0) g/dL RDW (11.5-15.5) % Plt Count (150-450) k/uL MPV Neutrophils % % Lymphocytes % % Monocytes % % Eosinophils % % Basophils % % Neutrophils # (1.3-7.7) k/uL Lymphocytes # (1.0-4.8) k/uL Monocytes # (0-1.0) k/uL Eosinophils # (0-0.7) k/uL Basophils # (0-0.2) k/uL ESR (0-20) mm/hr Sodium (137-145) mmol/L Potassium (3.5-5.1) mmol/L Chloride (98-107) mmol/L Carbon Dioxide (22-30) mmol/L Anion Gap mmol/L BUN (7-17) mg/dL Creatinine (0.52-1.04) mg/dL Est GFR (CKD-EPI)AfAm (>60 ml/min/1.73 sqM) Est GFR (CKD-EPI)NonAf (>60 ml/min/1.73 sqM) Glucose (74-99) mg/dL Plasma Lactic Acid Cr 0.8 (0.7-2.0) mmol/L Calcium (8.4-10.2) mg/dL Total Bilirubin (0.2-1.3) mg/dL AST (14-36) U/L ALT (4-34) U/L Alkaline Phosphatase (38-126) U/L C-Reactive Protein (<1.0) mg/dL Total Protein (6.3-8.2) g/dL Albumin (3.5-5.0) g/dL Lipase (23-300) U/L Urine Color Urine Appearance (Clear) Urine pH (5.0-8.0) Ur Specific Drummond (1.001-1.035) Urine Protein (Negative) Urine Glucose (UA) (Negative) Urine Ketones (Negative) Urine Blood (Negative) Urine Nitrite (Negative) Urine Bilirubin (Negative) Urine Urobilinogen (<2.0) mg/dL Ur Leukocyte Esterase (Negative) Urine RBC (0-5) /hpf Urine WBC (0-5) /hpf Ur Squamous Epith Cells (0-4) /hpf Disposition Clinical Impression: Chronic low back pain, DJD (degenerative joint disease), lumbar, Abdominal pain Narrative: Elevated sedimentation rate Disposition: HOME SELF-CARE Condition: Good Instructions (If sedation given, give patient instructions): Abdominal Pain (ED), Arthritis (ED), Chronic Back Pain (DC) Additional Instructions: Call Dr. Gunderson or Dr. Mann at 8 AM Saturday. You will need to be rechecked. Call outpatient radiology Saturday to schedule your MRI. You can take [id number] acetaminophen and/or ibuprofen if needed for additional pain control. Follow-up with your regular physician as directed. Return to the ER immediately if any symptoms worsen, new symptoms arise, or any other problems develop. Is patient prescribed a controlled substance at d/c from ED?: No Referrals: Josh Mann MD [Primary Care Provider] - 1-2 days Time of Disposition: 02:19
[2021-10-08 00:34] LABS: Basophils # (A) 0.1 k/uL (0-0.2); Basophils % (A) 1 %; Eosinophils # (A) 0.1 k/uL (0-0.7); Eosinophils % (A) 1 %; HCT 38.5 % (34.0-46.0); HGB 12.2 gm/dL (11.4-16.0); Lymphocytes # (A) 2.5 k/uL (1.0-4.8); Lymphocytes % (A) 35 %; MCHC 31.7 g/dL (31.0-37.0); MCV 94.6 fL (80.0-100.0); Mean Platelet Volume 7.5; Monocytes # (A) 0.3 k/uL (0-1.0); Monocytes % (A) 5 %; Neutrophils # (A) 4.1 k/uL (1.3-7.7); Neutrophils % (A) 57 %; Platelet Count 339 k/uL (150-450); RBC 4.07 m/uL (3.80-5.40); RDW 13.2 % (11.5-15.5); WBC 7.1 k/uL (3.8-10.6)
[2021-10-08 01:08] LABS: ALT 16 U/L (4-34); AST 21 U/L (14-36); African American GFR (CKD) >90 (>60 ml/min/1.73 sqM); Albumin 4.2 g/dL (3.5-5.0); Alkaline Phosphatase 107 U/L (38-126); Anion Gap 8 mmol/L; Blood Urea Nitrogen 10 mg/dL (7-17); C Reactive Protein 0.6 mg/dL (<1.0); Calcium 9.1 mg/dL (8.4-10.2); Carbon Dioxide 22 mmol/L (22-30); Chloride 108 mmol/L (98-107); Glucose 97 mg/dL (74-99); Lipase 46 U/L (23-300); Non-African American GFR(CKD) >90 (>60 ml/min/1.73 sqM); Potassium 3.5 mmol/L (3.5-5.1); Sodium 138 mmol/L (137-145); Total Bilirubin 0.3 mg/dL (0.2-1.3); Total Protein 6.9 g/dL (6.3-8.2)
--- NOTE | 2021-10-08 01:09 | XR ---
EXAMINATION TYPE: XR chest 1V portable DATE OF EXAM: 10/08/2021 COMPARISON: 11/10/2014 HISTORY: Abdominal pain TECHNIQUE: FINDINGS: Heart is normal. Lungs are clear of infiltrate. There are no hilar masses. Costophrenic ang les are clear. Bony thorax is intact IMPRESSION: Normal chest. No change.
--- NOTE | 2021-10-08 01:32 | CT ---
EXAMINATION TYPE: CT abdomen pelvis w con DATE OF EXAM: 10/08/2021 COMPARISON: 10/28/2016 HISTORY: pain CT DLP: 724.3 mGycm Automated exposure control for dose reduction was used. CONTRAST: Performed with IV Contrast, patient injected with 100 mL of Isovue 300. The lung bases are clear of infiltrate. No pleural effusion. Heart size is normal. No pericardial eff usion. Liver spleen and stomach pancreas gallbladder appear intact. The bile ducts are not dilated. There is no adrenal mass. Kidneys of normal size and contour. No hydronephrosis. Ureters are not dila poppy. There is no retroperitoneal adenopathy. Bladder distends smoothly. There is no inguinal hernia. No free fluid in the pelvis. No pelvic mass. There is left-sided calcified uterine fibroid. Uterus is retroverted. The lumbar vertebra show an L5 spondylolysis with a first-degree L5-S1 spondylolisthesis. No compress ion fracture. Bony pelvis is intact. The hip joints are intact. There is no mesenteric edema. No ascites or free air. Appendix is posterior and appears normal. There is no bowel obstruction. IMPRESSION: Negative CT scan abdomen and pelvis. Normal appendix. No adverse change.
[2021-10-08 01:44] LABS: Erythrocyte Sedimentation Rate 48 mm/hr (0-20)
[2021-10-08 03:09] VITALS: BP 118/71; PULSE 84; RESP 16
== END 2021-10-08 03:09 | disposition home or self-care (01) ==
LOC: EC 21:14
DX: M47.816 Spondylosis without myelopathy or radiculopathy, lumbar region (principal); R70.0 Elevated erythrocyte sedimentation rate; Z88.0 Allergy status to penicillin
CPT/HCPCS: 80053; 85652; 83605; 83690; 85025; 86140; 81001; 71045; 74177; 99284; 96374; J1885; Q9967; 36415